=== PATIENT | male | born 1980 | race Hispanic/Latino ===

== ENCOUNTER 2016-08-31 12:54 | Emergency (ER) | payer OTHER ==
[2016-08-31 13:13] VITALS: BP 149/90; PULSE 56; RESP 19; TEMP 98.8; O2SAT 100
--- NOTE | 2016-08-31 15:11 | ED PDOC ---
HPI: Headache Time Seen by Provider: 08/31/16 13:57 Chief Complaint (Nursing): Headache History Per: Patient History/Exam Limitations: no limitations Onset/Duration Of Symptoms: Gradual (for approx 1 month), Worse Since (two days ago) Current Symptoms Are (Timing): Still Present Severity: Mild Front/Back Head: 1 - pain Quality: Dull, Tightness Preceeding Symptoms: None Associated Symptoms: Blurred Vision. denies: Nausea, Vomiting, Extremity Weakness Additional History Per: Patient Additional Complaint(s): c'o headache 31 days . also c'o dizziness. states he has difficulty seeing at distance. states the pain increases at bedtime. doctor sent him here for eval Past Medical History Reviewed: Historical Data, Nursing Documentation, Vital Signs Vital Signs: Last Vital Signs Temp 98.8 F 08/31/16 13:10 Pulse 56 L 08/31/16 13:10 Resp 19 08/31/16 13:10 BP 149/90 08/31/16 13:10 Pulse Ox 100 08/31/16 13:10 - Medical History PMH: No Chronic Diseases - Family History Family History: States: Unknown Family Hx - Living Arrangements Living Arrangements: With Family - Social History Current smoker - smoking cessation education provided: No - Allergies Allergies/Adverse Reactions: Allergies Allergy/AdvReac Type Severity Reaction Status Date / Time No Known Allergies Allergy Verified 08/31/16 13:09 Review of Systems ROS Statement: Except As Marked, All Systems Reviewed And Found Negative Constitutional: Negative for: Fever, Chills Eyes: Positive for: Vision Change Cardiovascular: Negative for: Chest Pain, Edema, Light Headedness Respiratory: Negative for: Cough, Shortness of Breath Gastrointestinal: Negative for: Nausea, Vomiting, Abdominal Pain Musculoskeletal: Negative for: Neck Pain Skin: Negative for: Rash Neurological: Positive for: Headache. Negative for: Weakness, Numbness, Incoordination, Change in Speech, Confusion, Seizures, Altered Mental Status, Dizziness Physical Exam - Reviewed Nursing Documentation Reviewed: Yes Vital Signs Reviewed: Yes - Physical Exam Appears: Positive for: Well, No Acute Distress Head Exam: Positive for: ATRAUMATIC, NORMAL INSPECTION, NORMOCEPHALIC Eye Exam: Positive for: Normal appearance, EOMI, PERRL. Negative for: Nystagmus , Periorbital swelling, Periorbital tenderness, Conjunctival injection, Scleral icterus Neck: Positive for: Normal, Painless ROM, Supple Cardiovascular/Chest: Positive for: Regular Rate, Rhythm, Chest Non Tender. Negative for: Edema, Gallop Respiratory: Positive for: Normal Breath Sounds Gastrointestinal/Abdominal: Positive for: Normal Exam, Bowel Sounds, Soft. Negative for: Tenderness Back: Positive for: Normal Inspection. Negative for: L CVA Tenderness, R CVA Tenderness Extremity: Positive for: Normal ROM. Negative for: Tenderness, Pedal Edema Neurologic/Psych: Positive for: Alert, drug abuse resistance education officer II-XII, Oriented, Mood/Affect, Cerebellar Tests (ftn nml), Gait (steady). Negative for: Motor/Sensory Deficits , Aphasia, Facial Droop - ECG O2 Sat by Pulse Oximetry: 100 Pulse Ox Interpretation: Normal Disposition - Clinical Impression Clinical Impression: Headache - Patient ED Disposition Is Patient to be Admitted: Transfer of Care Counseled Patient/Family Regarding: Studies Performed, Diagnosis, Need For Followup - Disposition Disposition: Routine/Home Disposition Time: 15:11 Condition: STABLE Patient Signed Over To: Laina Gaspar
[2016-08-31 16:11] LABS: BASO % 0.9 % (0.0-2.0); EOS # 0.1 K/uL (0.0-0.7); EOS % 2.3 % (0.0-4.0); HEMOGLOBIN 15.3 g/dL (12.0-18.0); LYMPH # 1.8 K/uL (1.0-4.3); LYMPH % 37.4 % (20.0-40.0); MEAN CELL VOLUME 86.4 fl (80.0-94.0); MEAN CORPUSCULAR HEMOGLOBIN 29.7 pg (27.0-31.0); MEAN CORPUSCULAR HGB CONC 34.4 g/dL (33.0-37.0); MEAN PLATELET VOLUME 7.7 fl (7.2-11.7); MONO # 0.5 K/uL (0.0-0.8); MONO % 10.1 % (0.0-10.0); NEUT # 2.4 K/uL (1.8-7.0); NEUT % 49.3 % (50.0-75.0); NRBC % 0.1 % (0.0-0.0); RBC 5.15 Mil/uL (4.40-5.90); RED CELL DISTRIBUTION WIDTH 13.5 % (11.5-14.5); WHITE BLOOD COUNT 4.8 K/uL (4.8-10.8)
--- NOTE | 2016-08-31 16:17 | CT ---
PROCEDURE: CT HEAD WITHOUT CONTRAST. HISTORY: Headache COMPARISON: None available. TECHNIQUE: Axial computed tomography images were obtained through the head/brain without intravenous contrast. Radiation dose: Total exam DLP = 850.81 mGy-cm. This CT exam was performed using one or more of the following dose reduction techniques: Automated exposure control, adjustment of the mA and/or kV according to patient size, and/or use of iterative reconstruction technique. FINDINGS: HEMORRHAGE: No intracranial hemorrhage. BRAIN: Jackson-white matter differentiation is preserved. There is no mass, mass effect or abnormal extra-axial fluid collection. There is apparent diffuse increased density in the intracranial arteries and dural venous sinuses likely related to hemoconcentration. VENTRICLES: The ventricles are normal in size, shape and configuration. CALVARIUM: The skull base and calvarium are normal. PARANASAL SINUSES: Predominantly clear. MASTOID AIR CELLS: Predominantly clear. OTHER FINDINGS: None. IMPRESSION: No acute intracranial abnormality.
--- NOTE | 2016-08-31 16:24 | ED PDOC ---
- Laboratory Results Result Diagrams: 08/31/16 16:06 08/31/16 16:06 - ECG O2 Sat by Pulse Oximetry: 100 (RA) Pulse Ox Interpretation: Normal Medical Decision Making Medical Decision Making: Time: 15:00 --Patient was transferred from Dr. Oliveros to pr. --Pending ER work up, reassessment, and final disposition. Accession No. : [id number] Patient Name / ID : TIERRA SHEA / [id number] Exam Date : 08/31/2016 15:32:12 ( Approved ) Study Comment : Sex / Age : M / 36Y Creator : Doris Sal MD Dictator : Doris Sal MD Employee'S Representative : Boiler Coverer : Doris Sal MD Approver2 : Report Date : 08/31/2016 16:15:48 My Comment : PROCEDURE: CT HEAD WITHOUT CONTRAST. HISTORY: Headache COMPARISON: None available. TECHNIQUE: Axial computed tomography images were obtained through the head/brain without intravenous contrast. Radiation dose: Total exam DLP = 850.81 mGy-cm. This CT exam was performed using one or more of the following dose reduction techniques: Automated exposure control, adjustment of the mA and/or kV according to patient size, and/or use of iterative reconstruction technique. FINDINGS: HEMORRHAGE: No intracranial hemorrhage. BRAIN: Jackson-white matter differentiation is preserved. There is no mass, mass effect or abnormal extra-axial fluid collection. There is apparent diffuse increased density in the intracranial arteries and dural venous sinuses likely related to hemoconcentration. VENTRICLES: The ventricles are normal in size, shape and configuration. CALVARIUM: The skull base and calvarium are normal. PARANASAL SINUSES: Predominantly clear. MASTOID AIR CELLS: Predominantly clear. OTHER FINDINGS: None. IMPRESSION: No acute intracranial abnormality. DW pt findings and plan of care. Pt stable for dc. All concerns and questions addressed. f/u neurology. Scribe Attestation: Documented by Aimee Ponce, acting as a scribe for Anabel Gaspar MD. Provider Scribe Attestation: All medical record entries made by the Scribe were at my direction and personally dictated by me. I have reviewed the chart and agree that the record accurately reflects my personal performance of the history, physical exam, medical decision making, and the department course for this patient. I have also personally directed, reviewed, and agree with the discharge instructions and disposition. Disposition Counseled Patient/Family Regarding: Studies Performed, Diagnosis, Need For Followup, Rx Given - Clinical Impression Clinical Impression: Headache - POA Present On Arrival: None - Disposition Referrals: [facility] [Outside] Parker Patrick MD [Staff Provider] - 09/03/16 (CALL DR PATRICK'S OFFICE TO SETUP FOLLOW UP APPOINTMENT IN 3-4 DAYS) Disposition: Routine/Home Disposition Time: 16:45 Condition: STABLE Prescriptions: Naproxen [Naprosyn] 1 tab PO BID PRN #30 tab PRN Reason: Pain Instructions: General Headache (ED) Forms: [facility] ED School/Work Excuse
[2016-08-31 16:34] LABS: ALB/GLOB RATIO 2.1 (1.0-2.1); ALBUMIN 4.7 g/dL (3.5-5.0); ALT/SGPT 38 U/L (21-72); AST/SGOT 20 U/L (17-59); BLOOD UREA NITROGEN 14 mg/dl (9-20); CALCIUM 9.6 mg/dL (8.4-10.2); GFR AFRICAN-AMERICAN > 60; GFR NON-AFRICAN AMERICAN > 60
== END 2016-08-31 18:30 | disposition home or self-care (01) ==
LOC: H.ER 12:54
DX: R51 Headache (principal)